=== PATIENT | female | born 1955 | race Caucasian/White ===

== ENCOUNTER 2022-07-10 12:56 | Emergency (ER) | payer BC, SELFPAY ==
[2022-07-10 14:02] VITALS: BP 151/82; PULSE 64; RESP 18; TEMP 36.5; O2SAT 97; BMI 39.9
--- NOTE | 2022-07-10 15:49 | ED_ITS ---
HPI - General Adult General Time Seen by Provider: 15:49 Date Seen: 07/10/22 Chief complaint: Abdominal Pain Stated complaint: Shortness of breath/wheezing Time Seen by Provider: 07/10/22 15:18 Source: patient and RN notes reviewed Mode of arrival: ambulatory Limitations: no limitations History of Present Illness HPI narrative: Patient is a 66-year-old female that is been having episodic symptoms where she feels pain in a bandlike distribution throughout her lower rib cage on both sides. She feels when she has this that she has pain and cannot take a deep breath. She actually sat up in the chair Sunday night and slept that way, was crying the pain was so bad per her . No nausea or vomiting. States she feels like it is wheezy when it happens. She had an episode about a week ago where there was similar symptoms. No abdominal pain per se but she points to the epigastric area through both lower rib cages where she is feeling this. She has maybe had a lingering cough or respiratory symptoms. She is not really sure what is going on. She has had back surgery with rods in her spine but otherwise denies any abdominal surgery. She is a nonsmoker. No respiratory issues prior. She was eating covers in the lobby waiting to come in, tolerated this. She is not sure what is precipitating these symptoms. Couple nights ago felt a little chilled but no documented fevers. Related Data Home Medications Medication Instructions Recorded Confirmed ropinirole 0.25 mg tablet mg 07/10/22 sertraline 100 mg tablet mg 07/10/22 Previous Rx's Medication Instructions Recorded omeprazole 40 mg capsule,delayed 40 mg PO DAILY #30 caps 07/10/22 release prednisone 20 mg tablet 20 mg PO BID #10 tabs 07/10/22 Allergies Allergy/AdvReac Type Severity Reaction Status Date / Time No Known Drug Allergies Allergy Verified 07/10/22 14:08 Review of Systems Status of ROS: Reports: 10 or more systems reviewed and unremarkable except as noted in History and below PFSH PFSH Social History Non-prescribed substance use: denies use Exam Const: Vital Signs, click to edit/add: Vital Signs - 24 hr 07/10/22 14:02 Temperature 97.7 F Pulse Rate [Right Pulse Oximeter] 64 Respiratory Rate 18 Blood Pressure [Ri ght Upper Arm] 151/82 H Pulse Oximetry 97 Oxygen Delivery Me thod Room Air Documenting provider has reviewed patient's vital signs: yes Common normals: no apparent distress, oriented x3, no limitations, healthy appearing, alert and well nourished General appearance: cooperative, comfortable, well kempt and well developed Nutritional appearance: obese HENMT: Common normals: normocephalic, head/scalp atraumatic, hearing grossly normal bilaterally, external ears normal, external nose normal, nasal mucous membranes and turbinates normal, moist oral mucous membranes, oropharynx normal, dentition normal and gingiva normal Head and scalp: normocephalic and atraumatic Nose: external nose normal and nasal mucous membranes and turbinates normal External ear: external ears normal Eye: Common normals: PERRL, EOMs intact bilaterally, conjunctivae normal and no scleral icterus Conjunctiva: conjunctiva(e) normal Pupil: PERRL Neck & C-Spine: Common normals: full ROM, no lymphadenopathy, supple, no meningeal signs, no JVD and thyroid normal Thyroid: thyroid normal Resp: Common normals: normal respiratory effort, no retractions, no use of accessory muscles and clear to auscultation bilaterally Auscultation: clear to auscultation bilaterally Cardio: Common normals: no JVD, regular rate, regular rhythm, S1 normal heart sound, S2 normal heart sound, no gallops, no clicks and no murmurs Rate: regular rate Rhythm: regular rhythm Heart sounds: S1 normal and S2 normal GI: Common normals: Normal to inspection, nondistended, normoactive bowel sounds present, soft to palpation, no hepatosplenomegaly and no masses Palpation: soft and no hepatosplenomegaly Other: States there is some mild discomfort when I palpate the epigastric area but no rebound or guarding. Extremity: Other: No lower extremity edema. Neuro: Common normals: oriented x3 and gait normal Sensorium/orientation: alert Meningeal signs: no meningeal signs Psych: Appearance: well kempt Course Course Hospital Course: We will have an EKG obtained, monitor on pulse oximetry. Will get a full complement of labs. Reviewed with her that this could be respiratory, possibly even cardiac equivalent, GI pathology such is gastric issues, possibly even pancreatic or gallbladder are all potential abnormalities that we could fine. We discussed the lower rib cage is being in juxtaposition with both the heart lungs and abdomen. Thus we can see confounding symptoms. She was just eating, which would likely confound a gallbladder ultrasound unless there are significant abnormalities on her labs. This time she is comfortable. Will pr oceed accordingly pending our test results. Reevaluation(s) Reevaluation #1: Reviewed with patient and her a picture of her chest x-ray showing the abnormality. Had discussed this with our surgeon on-call Dr. Robbins. She agreed with proceeding with imaging of chest abdomen pelvis with IV contrast for further delineation. This would not be a surgery that we could do here, have reviewed that with them. Right now patient is asymptomatic but if this actually is her diagnosis, should she have pain again, would need to be evaluated at a tertiary center where they would do this type of surgery. Her labs are stable at this time. There is no evidence of any elevated inflammatory markers, no elevated white blood count, lactate is normal. She agrees to have the chest abdomen pelvis with IV contrast done, no she will be getting an IV placed. 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 Will send CT to [place] as they think that they will follow up there. Reviewed that she has influenza A. Her respiratory symptoms with the wheezy type cough has been present for about 2 weeks, she feels it is different than the episodes where she gets the upper abdominal/lower chest wall pain. Did also review the gastritis on her CT. She would like to try some prednisone to see if it helps with her cough. Reviewed with her that there is literature supporting patients with this current influenza having cough symptoms for weeks to months. Time: 19:16 Vital Signs Vital signs: Initial Vital Signs Temperature 97.7 F 07/10/22 14:02 Temperature Source Temporal Artery Scan 07/10/22 14:02 Pulse Rate 64 07/10/22 14:02 Pulse Rhythm 07/10/22 14:02 Respiratory Rate 18 07/10/22 14:02 Blood Pressure 151/82 H 07/10/22 14:02 Blood Pressure Mean 105 07/10/22 14:02 Blood Pressure Position Standing 07/10/22 14:02 Pulse Oximetry 97 07/10/22 14:02 Oxygen Delivery Method 07/10/22 14:02 Vital Signs Temperature 97.7 F 07/10/22 14:02 Pulse Rate 64 07/10/22 14:02 Respiratory Rate 18 07/10/22 14:02 Blood Pressure 151/82 H 07/10/22 14:02 Pulse Oximetry 97 07/10/22 14:02 Oxygen Delivery Method 07/10/22 14:02 Temperature 97.7 F 07/10/22 14:02 Pulse Rate 64 07/10/22 14:02 Respiratory Rate 18 07/10/22 14:02 Blood Pressure 151/82 H 07/10/22 14:02 Pulse Oximetry 97 07/10/22 14:02 Oxygen Delivery Method 07/10/22 14:02 Medical Decision Making Lab Data Lab results reviewed: Yes I reviewed the patient's lab results Labs: Lab Results 07/10/22 07/10/22 07/10/22 Range/Units 16:20 16:22 16:22 WBC 4.77 (4.50-11.00) K/uL RBC 4.66 (4.00-5.20) m/uL Hgb 14.1 (12.0-16.0) gm/dL Hct 42.9 (33.0-51.0) % MCV 92 (80-100) fL MCH 30 (26-34) pg MCHC 33 (32-36) gm/dL RDW Coeff of Astrid 13.0 (11.5-15.5) % Plt Count 259 (140-440) K/uL Neut % (Auto) 56.4 (42.0-72.0) % Lymph % (Auto) 32.7 (20-44) % [place] % (Auto) 5.7 (0.0-11.0) % Eos % (Auto) 3.8 (0.0-7.0) % Baso % (Auto) 0.6 (0.0-3.0) % Neut # (Auto) 2.69 (1.7-7.0) K/uL Lymph # (Auto) 1.56 (0.90-2.90) K/uL [place] # (Auto) 0.30 (0.00-0.90) K/UL Eos # (Auto) 0.18 (0.00-0.50) K/uL Baso # (Auto) 0.03 (0.00-0.30) K/uL Sodium 142 (135-149) mmol/L Potassium 3.5 L (3.6-5.1) mmol/L Chloride 106 (96-114) mmol/L Carbon Dioxide 29 (20-32) mmol/L BUN 22 (7-30) mg/dL Creatinine 0.7 (0.5-1.5) mg/dL Estimated Creat Clear 47.01 Estimated GFR 97 ml/min Glucose 150 H (60-115) mg/dL Lactate (0.5-1.9) mmol/L Calcium 9.2 (8.4-10.6) mg/dL Total Bilirubin 0.4 (0.1-1.5) mg/dL AST 24 (12-35) U/L ALT 22 (4-35) U/L Alkaline Phosphatase 97 (40-150) U/L C-Reactive Protein 0.8 (0.5-1.0) mg/dL Total Protein 8.0 (6.0-8.3) g/dL Albumin 4.6 (3.3-5.0) g/dL Lipase 95 (23-300) U/L SARS-CoV-2 (PCR) Negative SARS-CoV-2 (Negative) Influenza Type A (PCR) POSITIVE PCR FLU A A (Negative) Influenza Type B (PCR) Negative PCR FLU B (Negative) RSV (PCR) Negative PCR RSV (Negative) POC Troponin I (0.01-0.04) ng/ml 07/10/22 07/10/22 Range/Units 16:22 16:22 WBC (4.50-11.00) K/uL RBC (4.00-5.20) m/uL Hgb (12.0-16.0) gm/dL Hct (33.0-51.0) % MCV (80-100) fL MCH (26-34) pg MCHC (32-36) gm/dL RDW Coeff of Astrid (11.5-15.5) % Plt Count (140-440) K/uL Neut % (Auto) (42.0-72.0) % Lymph % (Auto) (20-44) % [place] % (Auto) (0.0-11.0) % Eos % (Auto) (0.0-7.0) % Baso % (Auto) (0.0-3.0) % Neut # (Auto) (1.7-7.0) K/uL Lymph # (Auto) (0.90-2.90) K/uL [place] # (Auto) (0.00-0.90) K/UL Eos # (Auto) (0.00-0.50) K/uL Baso # (Auto) (0.00-0.30) K/uL Sodium (135-149) mmol/L Potassium (3.6-5.1) mmol/L Chloride (96-114) mmol/L Carbon Dioxide (20-32) mmol/L BUN (7-30) mg/dL Creatinine (0.5-1.5) mg/dL Estimated Creat Clear Estimated GFR ml/min Glucose (60-115) mg/dL Lactate 1.2 (0.5-1.9) mmol/L Calcium (8.4-10.6) mg/dL Total Bilirubin (0.1-1.5) mg/dL AST (12-35) U/L ALT (4-35) U/L Alkaline Phosphatase (40-150) U/L C-Reactive Protein (0.5-1.0) mg/dL Total Protein (6.0-8.3) g/dL Albumin (3.3-5.0) g/dL Lipase (23-300) U/L SARS-CoV-2 (PCR) (Negative) Influenza Type A (PCR) (Negative) Influenza Type B (PCR) (Negative) RSV (PCR) (Negative) POC Troponin I 0.00 L (0.01-0.04) ng/ml Imaging Data Chest x-ray: Attestation: I have reviewed the pertinent imaging results. My impression: On my preliminary review she possibly has an effusion on the right side, will await Radiology over-read. Radiologist's impression: Patient: ASHLEE GALINDO Facility:?[facility] Patient ID:?[id number] Site Patient ID:?[id number]. Site :?[id number] Study:?XRay Chest 2 VIEWS-07/10/2022 4:25:28 PM Ordering Physician:Wayne Vidal Final Report: INDICATION: Wheezing. TECHNIQUE: Chest 2 views. COMPARISON: None. FINDINGS: Cardiovascular and mediastinum: Heart size and vasculature are normal in caliber and appearance. Lungs and pleural spaces: Low lung volumes. Right basilar soft tissue density. No focal consolidations. No sign of infiltrate or mass. No sign of pleural effusion. No pneumothorax. Bones and soft tissues: No significant findings. Upper thoracic hardware fixation. IMPRESSION: Right basilar soft tissue density, possibly Morgagni hernia. Otherwise, no focal consolidations. Dictated by Brigido Connor MD @ 07/10/2022 4:47:38 PM (Electronic Signature) CT Chest/Ab/Pelvis: Attestation: I have reviewed the pertinent imaging results. My impression: Can see the abnormality in the right chest on CT, I am not clear what this is. Will await Radiology over-read. Radiologist's impression: Patient: ASHLEE GALINDO Facility:?[facility] Patient ID:?[id number] Site Patient ID:?[id number]. Site :?[id number] Study:?CT Chest/Abd/Pelvis W/IV ONLY-07/10/2022 5:54:53 PM Ordering Physician:Wayne Vidal Final Report: Indication: Questioning Morgagni hernia, abnormality on chest x-ray Technique: Volumetric multidetector CT images of the chest, abdomen, and pelvis were obtained after the administration of intravenous contrast. 98 cc Isovue 370 low osmolar intravenous contrast Comparison: Two-view chest July 10, 2022 FINDINGS: CHEST The thoracic inlet is unremarkable. The thyroid demonstrates mild atrophic changes. The thoracic aorta is nonaneurysmal. There is no filling defect to suggest pulmonary embolus. There is no mediastinal, hilar, or axillary adenopathy. There is demonstration of a large omentum containing Morgagni hernia with a moderate amount of herniated omental fat with effacement of the adjacent middle lobe and lower lobes. There is basilar atelectasis and parenchymal scar. There is no other dense consolidation, effusion or pneumothorax. Old traumatic changes of the sternum are appreciated. There is vertebral plana deformity of the T3 vertebral body with pedicle screw fixation above and below within the T1 through T5 levels. There is otherwise mild straightening of the normal thoracic kyphosis without evidence of significant spondylolisthesis. ABDOMEN AND PELVIS The liver is normal in attenuation and size. The portal vein is patent. The spleen is normal in attenuation and size. The gallbladder is unremarkable without radiopaque calculus. There is no intrahepatic or common ductal dilatation. There is mild thickening of the stomach with minimal mucosal hyperemia and prominence of the gastric antrum. The pancreas is normal in enhancement without significant atrophy. The adrenal glands are unremarkable without evidence of adenoma. The kidneys are preserved and corticomedullary differentiation. There is no hydronephrosis or radiopaque calculus. There is a minimal amount of intracolonic stool. There is minimal scattered colonic diverticulosis. The appendix is unremarkable without significant inflammatory change. The abdominal aorta is nonaneurysmal with no significant atherosclerotic disease. The remaining solid pelvic viscera are otherwise grossly unremarkable. There is no pathologically enlarged epigastric, mesenteric, retroperitoneal, or pelvic sidewall lymph node. There is a small fat containing umbilical hernia. There is no free air or free fluid. Degenerative changes of the bilateral hips and sacroiliac joints. The lumbar vertebral body heights are grossly maintained in satisfactory alignment without evidence of displaced fracture. Impression: 1. 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 No evidence of herniated bowel contents. 2. Moderate hepatomegaly and hepatic steatosis. Moderate chronic gastritis c hange. Small fat containing umbilical hernia. 3. No other acute intra-abdominal abnormalities are appreciated. Please note that all CT scans at this facility use dose modulation, iterative reconstruction, and/or weight-based dosing when appropriate to reduce radiation dose to as low as reasonably achievable. Dictated by Zafar Trinh MD @ 07/10/2022 6:42:29 PM (Electronic Signature) ECG Data Attestation: I personally reviewed and interpreted this ECG as follows: (Normal sinus rhythm, 66 beats per minute, normal EKG, no ischemia.) Prior ECG tracings: not available for review Critical Care Time Critical Care Time Critical Care Time: No Discharge Plan Discharge Clinical Impression: Post-viral cough syndrome, Morgagni hernia, Influenza A Patient Disposition: Home, Self-Care Condition: Stable Instructions: Influenza (ED) Additional Instructions: For the influenza, there is no needed treatment for the viral illness itself. The cough is likely post inflammatory from this illness. We will try some prednisone, take as prescribed and take with food. There was evidence of chronic gastritis or stomach irritation on your CT. Would recommend taking daily omeprazole for the time being. You do need to get scheduled in clinic and obtain a primary care provider. We have pushed your images to [facility], can call them and request surgical consultation for this hernia. If you should develop any recurrent upper abdominal pain, have vomiting or fever with abdominal pain, do need emergent re-evaluation. We do not perform this type of surgery here in [place]. Activity Level: No Restrictions Prescriptions: New prednisone 20 mg tablet 20 mg PO BID Qty: 10 0RF omeprazole 40 mg capsule,delayed release(DR/EC) 40 mg PO DAILY Qty: 30 0RF No Action sertraline 100 mg tablet ropinirole 0.25 mg tablet Follow Up/Referrals: Provider,Not a Local [Primary Care Provider] - Stand Alone Forms: [facility] Info Instructions
--- NOTE | 2022-07-10 16:00 | CRLHL7_ITS ---
For Patients: As a result of the Cures Act, medical imaging exams and procedure reports are released immediately into your electronic medical record. You may view this report before your referring provider. If you have questions, please contact your health care provider. INDICATION: Wheezing. TECHNIQUE: Chest 2 views. COMPARISON: None. FINDINGS: Cardiovascular and mediastinum: Heart size and vasculature are normal in caliber and appearance. Lungs and pleural spaces: Low lung volumes. Right basilar soft tissue density. No focal consolidations. No sign of infiltrate or mass. No sign of pleural effusion. No pneumothorax. Bones and soft tissues: No significant findings. Upper thoracic hardware fixation. IMPRESSION: Right basilar soft tissue density, possibly Morgagni hernia. Otherwise, no focal consolidations. Dictated by Brigido Connor MD @ 07/10/2022 4:47:38 PM (Electronically Signed)
[2022-07-10 16:32] LABS: Lactate* 1.2 mmol/L (0.5-1.9)
[2022-07-10 16:46] LABS: Basophils Absolute Auto 0.03 K/uL (0.00-0.30); Basophils Percent Auto 0.6 % (0.0-3.0); Eosinophils Absolute Auto 0.18 K/uL (0.00-0.50); Eosinophils Percent Auto 3.8 % (0.0-7.0); Hematocrit 42.9 % (33.0-51.0); Hemoglobin* 14.1 gm/dL (12.0-16.0); Immature Granulocytes Abs Auto 0.04 K/uL (0.00-0.30); Immature Granulocytes Pct Auto 0.8 %; Lymphocytes Absolute Auto 1.56 K/uL (0.90-2.90); Lymphocytes Percent Auto 32.7 % (20-44); Mean Corpuscular HGB Conc 33 gm/dL (32-36); Mean Corpuscular Hemoglobin 30 pg (26-34); Mean Corpuscular Volume 92 fL (80-100); Monocytes Percent Auto 5.7 % (0.0-11.0); Neutrophils Absolute Auto 2.69 K/uL (1.7-7.0); Neutrophils Percent Auto 56.4 % (42.0-72.0); Platelet Count* 259 K/uL (140-440); Red Blood Count 4.66 m/uL (4.00-5.20); White Blood Count* 4.77 K/uL (4.50-11.00)
[2022-07-10 16:48] LABS: Albumin* 4.6 g/dL (3.3-5.0); Chloride* 106 mmol/L (96-114)
[2022-07-10 16:49] LABS: Potassium* 3.5 mmol/L (3.6-5.1); Sodium* 142 mmol/L (135-149)
[2022-07-10 16:51] LABS: Bilirubin Total* 0.4 mg/dL (0.1-1.5); Creatinine* 0.7 mg/dL (0.5-1.5); Est. Creatinine Clearance* 47.01; Estimated Glomerular Filt Rate 97 ml/min
[2022-07-10 16:52] LABS: Alanine Aminotransferase* 22 U/L (4-35); Alkaline Phosphatase* 97 U/L (40-150); Aspartate Amino Transferase* 24 U/L (12-35); Blood Urea Nitrogen* 22 mg/dL (7-30); Calcium* 9.2 mg/dL (8.4-10.6); Carbon Dioxide* 29 mmol/L (20-32); Glucose* 150 mg/dL (60-115); Lipase* 95 U/L (23-300)
[2022-07-10 16:55] LABS: C Reactive Protein* 0.8 mg/dL (0.5-1.0)
[2022-07-10 16:57] LABS: Slide Review Reflex No
[2022-07-10 17:12] LABS: PCR FLU A POSITIVE PCR FLU A (Negative); PCR FLU B Negative PCR FLU B (Negative); PCR RSV Negative PCR RSV (Negative); SARS PCR* Negative SARS-CoV-2 (Negative)
--- NOTE | 2022-07-10 17:12 | CRLHL7_ITS ---
For Patients: As a result of the 21st Century Cures Act, medical imaging exams and procedure reports are released immediately into your electronic medical record. You may view this report before your referring provider. If you have questions, please contact your health care provider. Indication: Questioning Morgagni hernia, abnormality on chest x-ray Technique: Volumetric multidetector CT images of the chest, abdomen, and pelvis were obtained after the administration of intravenous contrast. 98 cc Isovue 370 low osmolar intravenous contrast Comparison: Two-view chest July 10, 2022 FINDINGS: CHEST The thoracic inlet is unremarkable. The thyroid demonstrates mild atrophic changes. The thoracic aorta is nonaneurysmal. There is no filling defect to suggest pulmonary embolus. There is no mediastinal, hilar, or axillary adenopathy. There is demonstration of a large omentum containing Morgagni hernia with a moderate amount of herniated omental fat with effacement of the adjacent middle lobe and lower lobes. There is basilar atelectasis and parenchymal scar. There is no other dense consolidation, effusion or pneumothorax. Old traumatic changes of the sternum are appreciated. There is vertebral plana deformity of the T3 vertebral body with pedicle screw fixation above and below within the T1 through T5 levels. There is otherwise mild straightening of the normal thoracic kyphosis without evidence of significant spondylolisthesis. ABDOMEN AND PELVIS The liver is normal in attenuation and size. The portal vein is patent. The spleen is normal in attenuation and size. The gallbladder is unremarkable without radiopaque calculus. There is no intrahepatic or common ductal dilatation. There is mild thickening of the stomach with minimal mucosal hyperemia and prominence of the gastric antrum. The pancreas is normal in enhancement without significant atrophy. The adrenal glands are unremarkable without evidence of adenoma. The kidneys are preserved and corticomedullary differentiation. There is no hydronephrosis or radiopaque calculus. There is a minimal amount of intracolonic stool. There is minimal scattered colonic diverticulosis. The appendix is unremarkable without significant inflammatory change. The abdominal aorta is nonaneurysmal with no significant atherosclerotic disease. The remaining solid pelvic viscera are otherwise grossly unremarkable. There is no pathologically enlarged epigastric, mesenteric, retroperitoneal, or pelvic sidewall lymph node. There is a small fat containing umbilical hernia. There is no free air or free fluid. Degenerative changes of the bilateral hips and sacroiliac joints. The lumbar vertebral body heights are grossly maintained in satisfactory alignment without evidence of displaced fracture. Impression: 1. 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 No evidence of herniated bowel contents. 2. Moderate hepatomegaly and hepatic steatosis. Moderate chronic gastritis change. Small fat containing umbilical hernia. 3. No other acute intra-abdominal abnormalities are appreciated. Please note that all CT scans at this facility use dose modulation, iterative reconstruction, and/or weight-based dosing when appropriate to reduce radiation dose to as low as reasonably achievable. Dictated by Zafar Trinh MD @ 07/10/2022 6:42:29 PM (Electronically Signed)
== END 2022-07-10 19:32 | disposition home or self-care (01) ==
PROVIDERS: Emergency Provider Family Medicine
DX: R05.8 Other specified cough (principal); J09.X2 Influenza due to identified novel influenza A virus with other respiratory manifestations; K45.8 Other specified abdominal hernia without obstruction or gangrene
CPT/HCPCS: 36415; 71046; 71260; 74177; 80053; 83605; 83690; 84484; 85025; 86140; 87502; 87634; 87635; 93005; 94761; 99284; 99285; Q9967